=== PATIENT | female | born 1960 | race Hispanic/Latino ===

== ENCOUNTER 2019-09-28 07:21 | Day surgery (SDC) | payer OTHER ==
[2019-09-26 10:50] LABS: BASOPHILS % (AUTO) 0.3 % (0.0-5.0); EOSINOPHILS % (AUTO) 1.4 % (0.0-8.0); HEMATOCRIT 38.1 % (36-48); LYMPHOCYTES % (AUTO) 38.7 % (21.0-51.0); MEAN CORPUSCULAR HEMOGLOBIN 29.2 pg (27.0-33.0); MEAN CORPUSCULAR HGB CONC 32.3 g/dL (32.0-36.0); MEAN CORPUSCULAR VOLUME 90.5 fL (79-99); MONOCYTES % (AUTO) 6.7 % (3.0-13.0); NEUTROPHILS % (AUTO) 52.6 % (40.0-77.0); PLATELET COUNT (AUTO) 325 K/uL (130-400); RED BLOOD CELL COUNT(AUTO) 4.21 MIL/uL (4.00-5.50); RED CELL DISTRIBUTION WIDTH 13.3 % (11.0-15.5); WHITE BLOOD COUNT (AUTO) 6.6 K/uL (4.8-10.8)
[2019-09-26 10:57] LABS: POTASSIUM 4.5 mmol/L (3.5-5.1)
[2019-09-26 11:10] VITALS: BP 141/76
[~2019-09-28] VITALS: Ht 165.1 cm; Wt 85.2 kg
[2019-09-28] VITALS (17 sets, daily range): BP systolic 106–129; BP diastolic 57–76
[~2019-09-28 07:21] MED LIST: GABA-529 PO; LISI-613 PO; PRAV20TA4 PO; TRAM50TA4 PO; TRAZ-185 PO
[2019-09-28] MEDS ORDERED: LACTATED RINGERS 1000ML 1,000 ML IV SCH ×2 (08:00)
[2019-09-28] MEDS ORDERED: CEFAZOLIN SODIUM 1 GM VIAL ONE (09:58)
[2019-09-28] MEDS: CEFAZOLIN SODIUM 1 GM VIAL IVP ONE ×2 (10:00→11:08)
--- NOTE | 2019-09-28 10:00 | NUR ---
POTENTIAL FOR INFECTION: SHAVED LEFT HAND PER KANWAL QUACH, FOLLOWED BY WIPING WITH JACLYN: 2% CHLORHEXIDINE GLUCONATE CLOTH PATIENTS PRE-OP SKIN PREP.
[2019-09-28] MEDS ORDERED: MIDAZOLAM HCL 1 MG/ML 2ML VIAL ONE (10:55)
[2019-09-28] MEDS ORDERED: GLYCOPYRROLATE 1 MG/5 ML SYRINGE ONE (10:55)
[2019-09-28] MEDS ORDERED: SUCCINYLCHOLINE 200MG/10ML SYR ONE (10:55)
[2019-09-28] MEDS ORDERED: LIDOCAINE PF 2% 5ML ABBOJECT ONE (10:55)
[2019-09-28] MEDS ORDERED: NEOSTIGMINE 5MG/5ML SYR IV ONE (10:55)
[2019-09-28] MEDS ORDERED: PROPOFOL 10 MG/ML 20ML VIAL IV ONE (10:55)
[2019-09-28] MEDS ORDERED: ONDANSETRON HCL 4 MG/2 ML VIAL ONE (10:55)
[2019-09-28] MEDS ORDERED: ROCURONIUM 10MG/1ML SYR 10 MG/ML ML ONE (10:56)
[2019-09-28] MEDS ORDERED: FENTANYL CITRATE PF 50 MCG/1 ML 2ML VIAL ONE (10:56)
[2019-09-28] MEDS ORDERED: MEPERIDINE-PF 25 MG/ML SYG ONE ×2 (11:45→12:25)
[2019-09-28] MEDS ORDERED: MORPHINE SULFATE 2 MG/ML 1ML SYG ONE (12:18)
--- NOTE | 2019-09-28 13:05 | NUR ---
ASSESSMENT RECEIVED PT FROM PACU STAFF. SPLINT TO LEFT HAND IN PLACE. DRY AND INTACT. NO BLEEDING OOZING NOTED TO SITE. INSTRUCTED PT ON IMPORTANCE OF ELEVATING LEFT ARM. AT BEDSIDE.
--- NOTE | 2019-09-28 13:50 | NUR ---
DISCHARGE ORAL AND WRITTEN DISCHARGE INSTRUCTIONS GIVEN TO PT AND PTS ALONG WITH PRESCRIPTION. NO OTHER QUESTIONS AT THIS TIME. INSTRUCTED ON IMPORTANCE OF KEEPING ARM ELEVATED.
== END 2019-09-28 13:55 | disposition home or self-care (01) ==
LOC: DAH 07:21
PROVIDERS: ATTEND Orthopaedic Surgery
DX: M65.342 Trigger finger, left ring finger (principal); M65.4 Radial styloid tenosynovitis [de Quervain]; M17.10 Unilateral primary osteoarthritis, unspecified knee; I10 Essential (primary) hypertension; Z91.040 Latex allergy status; Z79.899 Other long term (current) drug therapy; Z96.651 Presence of right artificial knee joint; Z79.82 Long term (current) use of aspirin
CPT/HCPCS: 25000; 26055; 36415; 80048; 85025; A4213; A4215; A4221; A4222; A4223; A4649; A4663; A4930; A5120; A6223; A6260; J0330; J0690; J2001; J2175 ×2; J2250; J2405; J2704; J2710; J3010; J3490; J7120

== ENCOUNTER → 2025-05-10 | Outpatient (CLI) | payer BC ==
[~2025-05-10] MED LIST changes: -LISI-613 PO; +LISI20TA24 PO; -PRAV20TA4 PO; +PRAV20TA59 PO
--- NOTE | 2025-05-12 10:22 | HMCIMG ---
EXAM: MR Cervical Spine Without Intravenous Contrast. CLINICAL HISTORY: Radiculopathy. TECHNIQUE: Magnetic resonance images of the cervical spine in multiple planes. CONTRAST: None. COMPARISON: None. FINDINGS: The imaged posterior fossa is unremarkable. The craniocervical junction is intact. No acute fracture. Loss of the normal cervical lordosis. Multilevel anterior osteophytes. Mild reduction in C4-C5, C5-C6, and C6-C7 intervertebral disc heights. Normal vertebral body and the rest of the disc heights. Normal marrow signal of the vertebrae. The cervical cord is in an anatomic location. No abnormal signal involves the cord. No extra-axial masses. The surrounding soft tissues are unremarkable. Level by level, disease is present as follows: C1-C2: No osteoarthritis. C2-C3: No disc bulge or herniation is present. No neural foraminal, lateral recess, or spinal canal stenosis. C3-C4: No disc bulge or herniation is present. No neural foraminal, lateral recess, or spinal canal stenosis. C4-C5: Mild disc bulge of 2 mm indenting the anterior thecal sac. Mild to moderate narrowing of both the lateral recesses and neuroforamina (left more than right) abutting bilateral exiting C5 nerve roots. Mild canal narrowing. C5-C6: Mild disc bulge of 2 mm indenting the anterior thecal sac. Mild to moderate narrowing of both the lateral recesses and neuroforamina (left more than right) abutting bilateral exiting C6 nerve roots. Mild canal narrowing. C6-C7: Mild disc bulge with a 3 mm left foraminal protrusion causing moderate narrowing of the left lateral recess and neural foramen abutting the exiting C7 nerve root. Mild canal narrowing. C7-T1: No disc bulge or herniation. No neural foraminal, lateral recess, or spinal canal stenosis. IMPRESSION: 1. No acute fracture. Loss of the normal cervical lordosis. Multilevel anterior osteophytes. Mild reduction in C4-C5, C5-C6, and C6-C7 intervertebral disc heights. 2. Moderate cervical spondylosis. C6-C7 left foraminal protrusion causing moderate narrowing of the left lateral recess and neural foramen abutting the exiting C7 nerve root. 3. Mild to moderate narrowing of both C4-C5 and C5-C6 lateral recesses and neuroforamina (left more than right) abutting bilateral exiting nerve roots. 4. Mild spinal canal narrowing at C4-C5, C5-C6, and C6-C7 levels. /[place]
== END | disposition home or self-care (01) ==
LOC: RAH 12:44
PROVIDERS: ATTEND Physical Medicine & Rehabilitation
DX: M47.22 Other spondylosis with radiculopathy, cervical region (principal); M48.02 Spinal stenosis, cervical region; M50.123 Cervical disc disorder at C6-C7 level with radiculopathy; M25.78 Osteophyte, vertebrae; M50.323 Other cervical disc degeneration at C6-C7 level; Z98.890 Other specified postprocedural states
CPT/HCPCS: 72141

== ENCOUNTER → 2025-05-22 | Outpatient (CLI) | payer BC ==
--- NOTE | 2025-05-22 16:42 | HMCIMG ---
EXAM: CR Lumbar Spine, 4 View. CLINICAL HISTORY: Left lumbar radiculopathy. COMPARISON: None provided. FINDINGS: BONES: Posterior spinal fusion fixation noted at L5???S1 level with intact hardware and satisfactory alignment. No acute fracture or aggressive appearing osseous lesion identified. ALIGNMENT: Grade I anterolisthesis of L4 over L5 and L3 over L4 seen. Associated facet joint degeneration and subluxation at these levels. No significant scoliosis. DISCS / DEGENERATIVE CHANGES: Mild to moderate degenerative disc disease noted at L3???L4 and L4???L5, with secondary facet arthropathy. SOFT TISSUES: Prevertebral and paraspinal soft tissues appear unremarkable. IMPRESSION: 1. Grade I anterolisthesis of L4 over L5 and L3 over L4 with associated facet joint degeneration and subluxation. 2. Posterior spinal fusion fixation at L5-S1 with intact hardware and satisfactory alignment. 3. Mild to moderate degenerative disc disease at L3-L4 and L4-L5 with secondary facet arthropathy. 4. No acute fracture or aggressive appearing osseous lesion identified. 5. No significant scoliosis. /[place]
== END | disposition home or self-care (01) ==
LOC: RAH 11:21
PROVIDERS: ATTEND Physical Medicine & Rehabilitation
DX: M47.26 Other spondylosis with radiculopathy, lumbar region (principal); M46.1 Sacroiliitis, not elsewhere classified; M54.2 Cervicalgia; M53.2X6 Spinal instabilities, lumbar region; M43.16 Spondylolisthesis, lumbar region; M43.27 Fusion of spine, lumbosacral region; M51.16 Intervertebral disc disorders with radiculopathy, lumbar region; Z98.1 Arthrodesis status
CPT/HCPCS: 72114

== ENCOUNTER → 2025-07-17 | Outpatient (CLI) | payer BC ==
--- NOTE | 2025-07-18 01:17 | HMCIMG ---
EXAM: MR HIP LEFT CLINICAL HISTORY: Pain in the left hip. TECHNIQUE: Multiplanar magnetic resonance images of the left hip were obtained. CONTRAST: None. COMPARISON: Prior left hip radiograph dated 07/16/2025. FINDINGS: BONE: No femoral neck fracture, avascular necrosis of the femoral head, or sacral insufficiency fracture. No dislocation. No suspicious bone marrow signal alteration. The ischiofemoral space is unremarkable. JOINT: Articular cartilage thinning is present along the superolateral aspect of the joint, suggestive of early osteoarthritic changes. Marginal acetabular osteophytes are present. Minimal hip joint synovial effusion is present. The current imaging demonstrates similar osteoarthritic changes, as noted in the prior radiograph. ACETABULAR LABRUM: The acetabular labrum is unremarkable. TENDONS: There is thickening with intrasubstance edema of the gluteus medius tendon near its insertion upon the greater trochanter of the femur. Partial thickness tear affecting 50% fibers of the gluteus medius tendon is present. There is presence of fluid at the level of the tear. The gluteus medius insertional tendinopathy with partial thickness tear is a new finding since the prior x-ray. The hamstring and iliopsoas tendons are intact. MUSCLES: Normal muscles bulk and signal. BURSA: Mild trochanteric bursal effusion is present. OTHER SOFT TISSUES: Unremarkable. PELVIS: Limited non-contrast imaging of the pelvic viscera is unremarkable. IMPRESSION: 1. Partial thickness tear involving approximately 50% of the gluteus medius tendon fibers near the greater trochanter with associated insertional tendinopathy. 2. Early osteoarthritic changes of the left hip with superolateral cartilage thinning and marginal acetabular osteophytes. 3. Mild trochanteric bursal effusion. 4. Minimal hip joint synovial effusion. In comparison with the prior x-ray of the left hip dated July 16, 2025, there are stable osteoarthritic changes while the gluteus medius insertional tendinitis with partial thickness tear and trochanteric bursitis are new findings since the prior examination. /[place]
== END | disposition home or self-care (01) ==
LOC: RAH 12:26
PROVIDERS: ATTEND Physical Medicine & Rehabilitation
DX: S76.312A Strain of muscle, fascia and tendon of the posterior muscle group at thigh level, left thigh, initial encounter (principal); M25.552 Pain in left hip; M25.752 Osteophyte, left hip; M25.452 Effusion, left hip; M16.12 Unilateral primary osteoarthritis, left hip; R60.0 Localized edema; X58.XXXA Exposure to other specified factors, initial encounter; Y93.89 Activity, other specified; Y92.89 Other specified places as the place of occurrence of the external cause; Y99.8 Other external cause status
CPT/HCPCS: 73721